=== PATIENT | male | born 1955 | race Caucasian/White ===

== ENCOUNTER 2023-08-23 10:29 | Emergency (ER) | payer OTHER, SELFPAY ==
[2023-08-23 10:58] VITALS: BP 155/88; PULSE 81; RESP 20; TEMP 36.7; O2SAT 97; BMI 25.8
--- NOTE | 2023-08-23 11:17 | ED.BACK ---
HPI - Back Pain/Injury General Chief Complaint: Back Injury/Pain Stated Complaint: back pain Time Seen by Provider: 08/23/23 10:48 History of Present Illness HPI Narrative: This 68-year-old male comes in with worsening low back pain. He was seen in urgent care yesterday and prescribed Flexeril but states that he has great difficulty with low back pain especially when changing position from sitting to lying and standing and vice versa. He does not report any particular injury event. He boucher in [place] and recently drove back. Prior to this he was moving things at the home to get ready for being gone for the season. He awoke the next day when he was due to drive back from [place] and reported some mild pain. Throughout the trip back here he had worsening pain and continues to worsen. He does not have radiating pain down either leg but does feel little bit down into the hamstring of both legs. Related Data Home Medications Medication Instructions Recorded Confirmed ibuprofen [Advil] PO 08/22/23 08/22/23 esomeprazole magnesium 20 mg 20 mg PO DAILY 08/23/23 08/23/23 capsule,delayed release (Nexium) Previous Rx's Medication Instructions Recorded cyclobenzaprine 5 mg tablet 5 mg PO TID PRN muscle spasm #10 08/22/23 tabs cyclobenzaprine 10 mg tablet 10 mg PO TID #15 tabs 08/23/23 hydrocodone 5 mg-acetaminophen 325 1 tab PO Q4-6H PRN pain #20 tabs 08/23/23 mg tablet ketorolac 10 mg tablet 10 mg PO Q8H 5 days #15 tabs 08/23/23 methylprednisolone 4 mg tablets in See Rx Instructions PO .COMPLEX 08/23/23 a dose pack (Medrol (Garcia)) #21 ea Allergies Allergy/AdvReac Type Severity Reaction Status Date / Time No Known Drug Allergies Allergy Verified 08/22/23 13:14 Review of Systems Status of ROS: Reports: 10 or more systems reviewed and unremarkable except as noted in History and below Narrative: Constitutional: No fevers, no weight gain or loss. Eyes: No discharge. No vision changes. HENT: No congestion, no sore throat, no ear pain. Cardiovascular: No chest pain, no palpitations. Respiratory: No shortness of breath, no wheezes, no cough. Gastrointestinal: No abdominal pain, no vomiting, no diarrhea. Genitourinary: No dysuria, no hematuria. Musculoskeletal: Low back pain as described above. Skin: No rashes, no pruritis. Neurological: No dizziness, weakness, sensory change, speech change. Endo/Heme/Allergies: No bruising or bleeding. No polydipsia. Pysch: no suicidality, no anxiety, no insomnia. All other systems reviewed and are negative. Exam Narrative: Exam Narrative: Constitutional: Well-developed, well-nourished, no acute distress. HEENT: Normocephalic, atraumatic. Neck: Normal range of motion. Nontender. Supple. Heart: Regular. No murmurs. Normal rate. Intact distal pulses. Lungs: Clear to auscultation. No chest discomfort. No wheezes, rhonchi, or rales. Abdomen: Normal bowel sounds. Nontender. No rebound tenderness. Genitalia: Deferred. Back: Diffuse pain across the low back. Passive Straight leg raise is positive bilaterally at about 20? elevation. Extremities: Normal range of motion. No injury. Skin: Intact. No rash. Warm. No erythema or pallor. Neurologic: No altered sensation. No weakness. Alert and oriented. Psychiatric: No suicidality. No anxiety or depression. No insomnia. Nursing notes and vitals signs are reviewed. Exam Const: Vital Signs, click to edit/add: Vital Signs - 24 hr 08/23/23 10:58 Temperature 98.1 F Pulse Rate [Pulse Oximeter] 81 Respiratory Rate 20 Blood Pressure [Le ft Upper Arm] 155/88 H Pulse Oximetry 97 Oxygen Delivery Me thod Room Air Course Vital Signs Vital signs: Initial Vital Signs Temperature 98.1 F 08/23/23 10:58 Temperature Source Temporal Artery Scan 08/23/23 10:58 Pulse Rate 81 08/23/23 10:58 Pulse Rhythm Regular 08/23/23 10:58 Respiratory Rate 20 08/23/23 10:58 Blood Pressure 155/88 H 08/23/23 10:58 Blood Pressure Mean 110 H 08/23/23 10:58 Blood Pressure Position High-Fowlers 08/23/23 10:58 Pulse Oximetry 97 08/23/23 10:58 Oxygen Delivery Method Room Air 08/23/23 10:58 Vital Signs Temperature 98.1 F 08/23/23 10:58 Pulse Rate 81 05/01/24 10:58 Respiratory Rate 20 08/23/23 10:58 Blood Pressure 155/88 H 08/23/23 10:58 Pulse Oximetry 97 08/23/23 10:58 Oxygen Delivery Method Room Air 08/23/23 10:58 Temperature 98.1 F 08/23/23 10:58 Pulse Rate 81 08/23/23 10:58 Respiratory Rate 20 08/23/23 10:58 Blood Pressure 155/88 H 08/23/23 10:58 Pulse Oximetry 97 08/23/23 10:58 Oxygen Delivery Method Room Air 08/23/23 10:58 MDM - Back Pain/Injury MDM Narrative Medical decision making narrative: This patient comes in with worsening low back pain. He was seen in urgent care yesterday and it was thought that it was a muscle strain. He has been taking Flexeril without any relief. Rather he reports his pain is worsening. On exam he is showing positive passive leg raise bilaterally. He does have some pain radiating down the backside of his upper legs bilaterally. The patient did not have any mechanism of injury that mandates imaging at this time but if not improving he may need an MRI. The patient received intramuscular injection of morphine 10 mg. I did provide prescriptions for Toradol, [place], Flexeril, and Medrol Dosepak. I stated that we would not refill narcotics out of the ER and encouraged him to make an appointment with the spine clinic here in the event that he is not improving. Discharge Plan Discharge Clinical Impression: Lumbar radiculopathy Patient Disposition: Home w/ Parent or Adult Condition: Stable Additional Instructions: Take medications as prescribed. Activity as tolerated. Follow up with spine clinic. Call [phone] for appointment. Return if worsening. Prescriptions: New cyclobenzaprine 10 mg tablet 10 mg PO TID Qty: 15 0RF hydrocodone-acetaminophen 5-325 mg tablet 1 tab PO Q4-6H PRN (Reason: pain) Qty: 20 0RF ketorolac 10 mg tablet 10 mg PO Q8H 5 Days Qty: 15 0RF methylprednisolone [Medrol (Garcia)] 4 mg tablets,dose pack See Rx Instructions .ROUTE .COMPLEX Qty: 21 0RF Rx Instructions: orally per package directions No Action ibuprofen [Advil] PO cyclobenzaprine 5 mg tablet 5 mg PO TID PRN (Reason: muscle spasm) Qty: 10 0RF esomeprazole magnesium [Nexium] 20 mg capsule,delayed release(DR/EC) 20 mg PO DAILY Follow Up/Referrals: Provider,Not a Local [Primary Care Provider] - Stand Alone Forms: [employer] Info Instructions
[2023-08-23] MEDS: MORPHINE 10 MG/ML inj IM (11:28)
[2023-08-23 11:54] VITALS: BP 124/78; PULSE 76; O2SAT 92
== END 2023-08-23 12:51 | disposition home or self-care (01) ==
PROVIDERS: Emergency Provider Emergency Medicine Emergency Medical Services; PCP Physician Assistant Medical
DX: M54.16 Radiculopathy, lumbar region (principal)
CPT/HCPCS: 96372; 99283; 99284; J2270

== ENCOUNTER 2023-08-28 07:10 | Emergency (ER) | payer OTHER, SELFPAY ==
[2023-08-28 07:23] VITALS: BP 165/95; PULSE 100; RESP 18; TEMP 36.8; O2SAT 96
--- NOTE | 2023-08-28 07:41 | ED.GENADULT ---
HPI - General Adult General Chief complaint: Back Injury/Pain Stated complaint: back pain Time Seen by Provider: 08/28/23 07:41 History of Present Illness HPI narrative: seen in ED 5 days ago for back pain. was given meds. has follow up in 4 days. almost out of pain med and it seems worse 68-year-old man presenting to the emergency department Related Data Home Medications Medication Instructions Recorded Confirmed ibuprofen [Advil] PO 08/22/23 08/22/23 esomeprazole magnesium 20 mg 20 mg PO DAILY 08/23/23 08/23/23 capsule,delayed release (Nexium) Previous Rx's Medication Instructions Recorded cyclobenzaprine 5 mg tablet 5 mg PO TID PRN muscle spasm #10 08/22/23 tabs cyclobenzaprine 10 mg tablet 10 mg PO TID #15 tabs 08/23/23 hydrocodone 5 mg-acetaminophen 325 1 tab PO Q4-6H PRN pain #20 tabs 08/23/23 mg tablet ketorolac 10 mg tablet 10 mg PO Q8H 5 days #15 tabs 08/23/23 methylprednisolone 4 mg tablets in See Rx Instructions PO .COMPLEX 08/23/23 a dose pack (Medrol (Garcia)) #21 ea Allergies Allergy/AdvReac Type Severity Reaction Status Date / Time No Known Drug Allergies Allergy Verified 08/22/23 13:14 PFSH PFSH Social History Smoking Status: Never smoker How often do you have a drink containing alcohol: never How often do you have six or more drinks on one occasion: Never AUDIT-C Alcohol total score: 0 Non-prescribed substance use: denies use Exam Const: Vital Signs, click to edit/add: Vital Signs - 24 hr 08/28/23 07:23 Temperature 98.2 F Pulse Rate [Right Pulse Oximeter] 100 Respiratory Rate 18 Blood Pressure [Ri ght Upper Arm] 165/95 H Pulse Oximetry 96 Oxygen Delivery Me thod Room Air Course Vital Signs Vital signs: Initial Vital Signs Temperature 98.2 F 08/28/23 07:23 Temperature Source Temporal Artery Scan 08/28/23 07:23 Pulse Rate 100 08/28/23 07:23 Respiratory Rate 18 08/28/23 07:23 Blood Pressure 165/95 H 08/28/23 07:23 Blood Pressure Mean 118 H 08/28/23 07:23 Pulse Oximetry 96 08/28/23 07:23 Oxygen Delivery Method Room Air 08/28/23 07:23 Vital Signs Temperature 98.2 F 08/28/23 07:23 Pulse Rate 100 08/28/23 07:23 Respiratory Rate 18 08/28/23 07:23 Blood Pressure 165/95 H 08/28/23 07:23 Pulse Oximetry 96 08/28/23 07:23 Oxygen Delivery Method Room Air 08/28/23 07:23 Temperature 98.2 F 08/28/23 07:23 Pulse Rate 100 08/28/23 07:23 Respiratory Rate 18 08/28/23 07:23 Blood Pressure 165/95 H 08/28/23 07:23 Pulse Oximetry 96 08/28/23 07:23 Oxygen Delivery Method Room Air 08/28/23 07:23 Discharge Plan Discharge Prescriptions: No Action ibuprofen [Advil] PO cyclobenzaprine 5 mg tablet 5 mg PO TID PRN (Reason: muscle spasm) Qty: 10 0RF esomeprazole magnesium [Nexium] 20 mg capsule,delayed release(DR/EC) 20 mg PO DAILY cyclobenzaprine 10 mg tablet 10 mg PO TID Qty: 15 0RF hydrocodone-acetaminophen 5-325 mg tablet 1 tab PO Q4-6H PRN (Reason: pain) Qty: 20 0RF ketorolac 10 mg tablet 10 mg PO Q8H 5 Days Qty: 15 0RF methylprednisolone [Medrol (Garcia)] 4 mg tablets,dose pack See Rx Instructions .ROUTE .COMPLEX Qty: 21 0RF Rx Instructions: orally per package directions Follow Up/Referrals: Annette Fernandez PA-C [Primary Care Provider] -
--- NOTE | 2023-08-28 08:20 | ED.BACK ---
HPI - Back Pain/Injury General Chief Complaint: Back Injury/Pain Stated Complaint: back pain Time Seen by Provider: 08/28/23 07:41 History of Present Illness HPI Narrative: This 68-year-old male comes in with back pain that is been present for the past week. He was seen by me a week ago for the same symptoms. He did receive prescription medications and states that he has almost run out of these medicines and has not had any resolution of his pain. His pain is most pronounced when he is transferring from lying to sitting and standing. He feels some pain generally otherwise when not changing position but it is not anywhere as intense as with these movements. He does not really report any pain down either leg but did have positive straight leg raise bilaterally at about 20-30 degrees when I saw him last week. He was instructed to follow-up with spine clinic but has not made such an appointment. He does have an appointment with his primary physician tomorrow. Related Data Home Medications Medication Instructions Recorded Confirmed ibuprofen [Advil] PO 08/22/23 08/22/23 esomeprazole magnesium 20 mg 20 mg PO DAILY 08/23/23 08/23/23 capsule,delayed release (Nexium) Previous Rx's Medication Instructions Recorded cyclobenzaprine 5 mg tablet 5 mg PO TID PRN muscle spasm #10 08/22/23 tabs cyclobenzaprine 10 mg tablet 10 mg PO TID #15 tabs 08/23/23 hydrocodone 5 mg-acetaminophen 325 1 tab PO Q4-6H PRN pain #20 tabs 08/23/23 mg tablet ketorolac 10 mg tablet 10 mg PO Q8H 5 days #15 tabs 08/23/23 methylprednisolone 4 mg tablets in See Rx Instructions PO .COMPLEX 08/23/23 a dose pack (Medrol (Garcia)) #21 ea cyclobenzaprine 10 mg tablet 10 mg PO TID #15 tabs 08/28/23 gabapentin 100 mg capsule 100 mg PO TID #30 caps 08/28/23 hydrocodone 5 mg-acetaminophen 325 1 tab PO Q4-6H PRN pain #10 tabs 08/28/23 mg tablet ketorolac 10 mg tablet 10 mg PO Q8H 5 days #15 tabs 08/28/23 methylprednisolone 4 mg tablets in See Rx Instructions PO .COMPLEX 08/28/23 a dose pack (Medrol (Garcia)) #21 ea Allergies Allergy/AdvReac Type Severity Reaction Status Date / Time No Known Drug Allergies Allergy Verified 08/22/23 13:14 Review of Systems Status of ROS: Reports: 10 or more systems reviewed and unremarkable except as noted in History and below Narrative: Constitutional: No fevers, no weight gain or loss. Eyes: No discharge. No vision changes. HENT: No congestion, no sore throat, no ear pain. Cardiovascular: No chest pain, no palpitations. Respiratory: No shortness of breath, no wheezes, no cough. Gastrointestinal: No abdominal pain, no vomiting, no diarrhea. Genitourinary: No dysuria, no hematuria. Musculoskeletal: Normal range of motion. Low back pain as described above. Skin: No rashes, no pruritis. Neurological: No dizziness, weakness, sensory change, speech change. Endo/Heme/Allergies: No bruising or bleeding. No polydipsia. Pysch: no suicidality, no anxiety, no insomnia. All other systems reviewed and are negative. PFSH PFSH Social History Smoking Status: Never smoker How often do you have a drink containing alcohol: never How often do you have six or more drinks on one occasion: Never AUDIT-C Alcohol total score: 0 Non-prescribed substance use: denies use Exam Narrative: Exam Narrative: Constitutional: Well-developed, well-nourished, no acute distress. HEENT: Normocephalic, atraumatic. Neck: Normal range of motion. Nontender. Supple. Heart: Intact distal pulses. Lungs: No chest discomfort. No wheezes, rhonchi, or rales. Abdomen: Nontender. Back: Straight leg raise is positive bilaterally at about 30? elevation. Extremities: Normal range of motion. No injury. Skin: Intact. No rash. Warm. No erythema or pallor. Neurologic: No altered sensation. No weakness. Alert and oriented. Psychiatric: No suicidality. No anxiety or depression. No insomnia. Nursing notes and vitals signs are reviewed. Const: Vital Signs, click to edit/add: Vital Signs - 24 hr 08/28/23 07:23 Temperature 98.2 F Pulse Rate [Right Pulse Oximeter] 100 Respiratory Rate 18 Blood Pressure [Ri ght Upper Arm] 165/95 H Pulse Oximetry 96 Oxygen Delivery Me thod Room Air Course Vital Signs Vital signs: Initial Vital Signs Temperature 98.2 F 08/28/23 07:23 Temperature Source Temporal Artery Scan 08/28/23 07:23 Pulse Rate 100 08/28/23 07:23 Respiratory Rate 18 08/28/23 07:23 Blood Pressure 165/95 H 08/28/23 07:23 Blood Pressure Mean 118 H 08/28/23 07:23 Pulse Oximetry 96 08/28/23 07:23 Oxygen Delivery Method Room Air 08/28/23 07:23 Vital Signs Temperature 98.2 F 08/28/23 07:23 Pulse Rate 100 08/28/23 07:23 Respiratory Rate 18 08/28/23 07:23 Blood Pressure 165/95 H 08/28/23 07:23 Pulse Oximetry 96 08/28/23 07:23 Oxygen Delivery Method Room Air 08/28/23 07:23 Temperature 98.2 F 08/28/23 07:23 Pulse Rate 100 08/28/23 07:23 Respiratory Rate 18 08/28/23 07:23 Blood Pressure 165/95 H 08/28/23 07:23 Pulse Oximetry 96 08/28/23 07:23 Oxygen Delivery Method Room Air 08/28/23 07:23 MDM - Back Pain/Injury MDM Narrative Medical decision making narrative: This patient comes in with persistent low back pain over the last week. The pain is not related to any injury event or strenuous activity and occurs much more intensely when changing positions. He did have a long car ride from wintering in [place] just prior to this and it was during that long ride that he developed this low back pain. I did refill medications and added gabapentin. He does have a follow-up appointment with his primary physician tomorrow. I again recommended that he follow-up with spine clinic and consider physical therapy. Discharge Plan Discharge Clinical Impression: Lumbago Patient Disposition: Home, Self-Care Condition: Unchanged Additional Instructions: Take medications as prescribed and needed. Follow-up with primary physician tomorrow as scheduled. A spine clinic appointment can be arranged by calling [phone]. Return if worsening. Prescriptions: New cyclobenzaprine 10 mg tablet 10 mg PO TID Qty: 15 0RF hydrocodone-acetaminophen 5-325 mg tablet 1 tab PO Q4-6H PRN (Reason: pain) Qty: 10 0RF ketorolac 10 mg tablet 10 mg PO Q8H 5 Days Qty: 15 0RF gabapentin 100 mg capsule 100 mg PO TID Qty: 30 2RF methylprednisolone [Medrol (Garcia)] 4 mg tablets,dose pack See Rx Instructions .ROUTE .COMPLEX Qty: 21 0RF Rx Instructions: orally per package directions No Action ibuprofen [Advil] PO cyclobenzaprine 5 mg tablet 5 mg PO TID PRN (Reason: muscle spasm) Qty: 10 0RF esomeprazole magnesium [Nexium] 20 mg capsule,delayed release(DR/EC) 20 mg PO DAILY cyclobenzaprine 10 mg tablet 10 mg PO TID Qty: 15 0RF hydrocodone-acetaminophen 5-325 mg tablet 1 tab PO Q4-6H PRN (Reason: pain) Qty: 20 0RF ketorolac 10 mg tablet 10 mg PO Q8H 5 Days Qty: 15 0RF methylprednisolone [Medrol (Garcia)] 4 mg tablets,dose pack See Rx Instructions .ROUTE .COMPLEX Qty: 21 0RF Rx Instructions: orally per package directions Follow Up/Referrals: Annette Fernandez PASantosh [Primary Care Provider] - Stand Alone Forms: [employer] Info Instructions
== END 2023-08-28 08:39 | disposition home or self-care (01) ==
LOC: ED 08:35
PROVIDERS: Emergency Provider Emergency Medicine Emergency Medical Services; PCP Physician Assistant Medical
DX: M54.50 Low back pain, unspecified (principal)
CPT/HCPCS: 99283; 99284

== ENCOUNTER 2024-01-18 15:15 | Outpatient (RCR) | payer OTHER, SELFPAY | END 2024-01-18 17:08 | disposition home or self-care (01) | PROVIDERS: PCP Physician Assistant Medical; Visit Provider Physician Assistant Medical | DX: M54.16 Radiculopathy, lumbar region (principal); M54.50 Low back pain, unspecified; Z51.89 Encounter for other specified aftercare | CPT/HCPCS: 97110; 97140; 97161 ==